=== PATIENT | male | born 1985 | race Two or more races ===

== ENCOUNTER 2021-03-11 13:11 | Emergency (ER) | payer BC, OTHER ==
[~2021-03-11] VITALS: Ht 170.2 cm; Wt 82.1 kg
[2021-03-11 14:54] VITALS: BP 143/79
[2021-03-11] MEDS ORDERED: KETOROLAC TROMETH 60MG/2ML VIAL IM ONE (15:00)
== END 2021-03-11 15:52 | disposition home or self-care (01) ==
LOC: ER 13:11
DX: S39.012A Strain of muscle, fascia and tendon of lower back, initial encounter (principal); X50.0XXA Overexertion from strenuous movement or load, initial encounter; Y93.89 Activity, other specified; Y92.89 Other specified places as the place of occurrence of the external cause; Y99.8 Other external cause status
CPT/HCPCS: 72100; 96372; 99283; J1885

== ENCOUNTER 2021-04-21 17:30 | Emergency (ER) | payer BC ==
[~2021-04-21] VITALS: Ht 172.7 cm; Wt 84.4 kg
[2021-04-21 17:31] VITALS: BP 127/91
== END 2021-04-21 21:35 | disposition left against medical advice (07) ==
LOC: ER 17:30
DX: M54.9 Dorsalgia, unspecified (principal); Z53.21 Procedure and treatment not carried out due to patient leaving prior to being seen by health care provider